=== PATIENT | male | born 1945 | race Caucasian/White ===

== ENCOUNTER → 2016-12-02 | Day surgery (SDC) | payer MEDICARE ==
[~2016-12-02] VITALS: Ht 167.6 cm; Wt 56.2 kg
[~2016-12-02] MED LIST: AMIODARONE HCL200 MG PO; ANTIVERT/2525 M1 PO; ASCRIPTIN1 TA1 PO; ASPIRIN81 M1 PO; CLARITIN-D 5 MG1 T12 PO; COLACE100 MG PO; COREG3.125 MG PO; COREG6.25 MG PO; DOXYCYCLINE HY100 M3 PO; FLOMAX0.4 MG PO; HYDROCODONE BIT1 T11 PO; LEVOFLOXACIN500 MG PO; LIPITOR40 MG PO; LISINOPRIL2.5 MG PO; LOMOTIL 0.025 M1 TA1 PO; PERCOCET 325 MG1 TA5 PO; PRINIVIL20 M1 PO; PROCHLORPERAZIN10 M1 PO; ZOFRAN4 MG PO
--- NOTE | ~2016-12-02 | PROC NOTE ---
[place], [place] PROCEDURE NOTE NAME: MUNA PHELPS V [facility] #: [id number] UNIT #: [id number] ROOM: DOCTOR: SILVESTRE GAY MD BIRTHDATE: [birth year] DOS: 12/02/2016 PREOPERATIVE DIAGNOSES: History of colon cancer, status post subtotal colectomy. POSTOPERATIVE DIAGNOSES: History of colon cancer, status post subtotal colectomy. PROCEDURE: Sigmoidoscopy. ENDOSCOPIST: Silvestre Gay MD FIELD CONTACT PERSON: None. ANESTHESIA: MAC. INDICATIONS: This is a 71-year-old gentleman who underwent subtotal colectomy for obstructing sigmoid cancer a few years ago, who is here for a sigmoidoscopy/colonoscopy. The procedure and its complications were explained to the patient in detail and he agreed to proceed. DESCRIPTION OF PROCEDURE: After identifying the patient, the patient was brought to the endoscopy suite and placed in the left lateral position. After time-out procedure was called, IV sedation was administered by the anesthesia team. A digital rectal exam was performed, which was within normal limits. An adult colonoscope was now introduced into the anal canal and advanced sequentially into the rectum and the distal sigmoid colon where the anastomosis was visualized and into the distal part of the small intestine. There were no obvious polyps, ulcerations or lesions that could be visualized. Upon withdrawal, these findings were confirmed. The patient was then taken to the recovery room in a stable fashion. There were no complications. Dr. Silvestre Gay, the attending surgeon was present throughout the operating case. Based on these findings, the patient is recommended to have another colonoscopy within the next 1-3 years. These findings will be discussed with the patient in the postoperative recovery room. Silvestre Gay MD CM:PROCNOTE:PROCEDURE NOTE [id number] SILVESTRE GAY MD
[2016-12-02 07:50] VITALS: BP 146/98
[2016-12-02 08:24] VITALS: BP 136/81
[2016-12-02 08:39] VITALS: BP 139/89
[2016-12-02 08:54] VITALS: BP 134/84
== END | disposition home or self-care (01) ==
LOC: SDC 11-29 08:00
DX: Z08 Encounter for follow-up examination after completed treatment for malignant neoplasm (principal); I10 Essential (primary) hypertension; I25.2 Old myocardial infarction; Z85.038 Personal history of other malignant neoplasm of large intestine; Z90.49 Acquired absence of other specified parts of digestive tract; Z98.0 Intestinal bypass and anastomosis status; Z85.46 Personal history of malignant neoplasm of prostate; Z86.14 Personal history of Methicillin resistant Staphylococcus aureus infection; Z98.890 Other specified postprocedural states; Z82.49 Family history of ischemic heart disease and other diseases of the circulatory system; Z80.9 Family history of malignant neoplasm, unspecified; Z87.891 Personal history of nicotine dependence
CPT/HCPCS: 00810; G0104

== ENCOUNTER → 2017-03-14 | Outpatient (CLI) | payer MEDICARE ==
[2017-03-14 08:21] LABS: ALBUMIN 3.5 gm/dl (3.1-4.5); ALKALINE PHOSPHATASE 82 U/L (45-117); BUN 16 mg/dl (7-24); CHLORIDE 108 mmol/L (98-107); CREATININE 1.25 mg/dL (0.70-1.30); POTASSIUM 4.2 mmol/L (3.5-5.1); SGOT/AST 15 IU/L (3-35); SGPT/ALT 19 U/L (12-78); SODIUM 141 mmol/L (136-145); TOTAL PROTEIN 6.6 gm/dL (6.4-8.2)
== END | disposition home or self-care (01) ==
LOC: LAB 07:14
PROVIDERS: Internal Medicine Interventional Cardiology
DX: I11.0 Hypertensive heart disease with heart failure (principal); I50.9 Heart failure, unspecified; J98.4 Other disorders of lung; E78.2 Mixed hyperlipidemia; I25.10 Atherosclerotic heart disease of native coronary artery without angina pectoris; I25.5 Ischemic cardiomyopathy; I47.2 Ventricular tachycardia; I25.2 Old myocardial infarction; Z95.810 Presence of automatic (implantable) cardiac defibrillator; Z79.899 Other long term (current) drug therapy

== ENCOUNTER → 2017-03-27 | Outpatient (CLI) | payer MEDICARE ==
--- NOTE | ~2017-03-27 | PF ---
[place], [place] PULMONARY FUNCTION TEST [id number] UNIT #: [id number] ROOM: DOCTOR: SUSANA MANJARREZ MD,GERA BIRTHDATE: [birth year] DOS: 03/27/2017 ORDERED BY: Dr. Jacobo Harrington. HISTORY: The patient recorded as 72-year-old male, height of 70 inches, weight of 208 pounds with BMI 29.8. The testing was done for diagnosis of a shortness of breath and others. The patient was also using Cordarone ____. There was no history of tobacco use. Dyspnea with exertion and rare wheezing reported in the symptoms. SPIROMETRY: The FVC was recorded 3.63 liters at 84% predicted value normal. FEV1 was noted 2.69 liters at 86% predicted value normal as well. Ratio of FEV1/FVC recorded 70.4%, normal. Flow volume was suggestive of mild obstructive airway pattern. The patient's lung volume, thoracic gas volume recorded 79%, residual volume 77%, total lung capacity 78%. Lung volume suggestive of mild obstructive airway pattern. The patient's lung diffusion recorded 73%. It is mildly decreased without correction of carbon monoxide hemoglobin value. The patient has resistance and passive conductance normal. FINAL IMPRESSION: Evidence of mild restrictive lung disease. The patient was noted with current pulmonary function test with mild reduction of the lung diffusion. GERA MEZA MD CM:PFREPORT:PULMONARY FUNCTION TEST 1402 1540 GERA MANJARREZ MD
== END ==
LOC: CP 10:34
DX: J98.4 Other disorders of lung (principal); I25.5 Ischemic cardiomyopathy; I47.2 Ventricular tachycardia; Z79.899 Other long term (current) drug therapy

== ENCOUNTER 2017-11-11 05:57 | Inpatient (IN) | payer MEDICARE ==
[~2017-11-11] VITALS: Ht 195.6 cm; Wt 91.3 kg
--- NOTE | ~2017-11-11 | PR ---
[place], [place] PROGRESS NOTE NAME: MUNA PHELPS V UNIT #: [id number] ROOM: 506 DOCTOR: CHRIS SHUKLA MD BIRTHDATE: [birth year] DOS: 11/13/2017 SUBJECTIVE: The patient was seen at his bedside today 11/13/2017 for followup of his ischemic cardiomyopathy with ICD in place along with near syncope. He presented to the hospital on this occasion after standing and feeling very lightheaded. He became nauseous and did vomit once and then felt very weak. He was hospitalized for further assessment. His ICD was interrogated by the [employer] hvac sales representative and found to be functioning normally. Hemoglobin is normal at 13.9. TSH is elevated at 11.6, troponin level was normal. The patient did have a carotid ultrasound study today, which showed atherosclerotic plaque, but less than 50% stenoses bilaterally. PHYSICAL EXAMINATION: VITAL SIGNS: Today, his pulse is 66 and regular, blood pressure 139/79. He is afebrile. NECK: Supple. He has no jugular distention. Carotids are full. LUNGS: Respirations are unlabored. His chest is clear to auscultation and percussion. HEART: Has a regular rhythm. He has a fourth heart sound, but no third heart sound. The PMI is not displaced. ABDOMEN: Soft and normally active. EXTREMITIES: Showed no edema. Peripheral pulses were easily palpated in the feet. IMPRESSION: 1. History of coronary artery disease with ischemic cardiomyopathy. 2. Status post placement of Medtronic dual chamber ICD. 3. Near syncope. The patient describes orthostatic lightheadedness preceding his episode. PLAN: We will be obtaining an echocardiogram, thus far we find no significant arrhythmic cause for his syncope. It is likely that his symptoms were due to orthostatic lightheadedness from his cardiomyopathy and his medications. Currently, he appears to be hemodynamically compensated. He shows no signs of fluid overload or low cardiac output. I would consider replacing his hypothyroid indices, which are most likely caused by his amiodarone. He can probably be discharged to home at any time for followup with his regular house admin as an outpatient. We thank the hospitalist physicians for asking our advice regarding his care. [place], [place] PROGRESS NOTE NAME: LENIN,TORO Holli UNIT #: [id number] ROOM: 506 DOCTOR: CHRIS SHUKLA MD BIRTHDATE: [birth year] CHRIS SHUKLA MD CM:PNTRANS 1405 0131 CHRIS SHUKLA MD 11/14/17 0129 interface
--- NOTE | ~2017-11-11 | EKG ---
[place], [place] ELECTROCARDIOGRAM REPORT NAME: MUNA PHELPS V UNIT #: [id number] ROOM: 506 DOCTOR: EPIPHANY DRAFT REPORT BIRTHDATE: [birth year] [facility] Test Date: 2017-11-11 Test Time: 06:40:43 Pat Name: MUNA PHELPS Department: Room: 506 Gender: M Ham Sawyer: : 1945 Requested By: EDVIN MANZO Order Number: [id number] Reading MD: Rina Huitron MD Measurements Intervals [place] Rate: 60 P: 58 [place]: 196 QRS: -26 QRSD: 169 T: 251 QT: 486 QTc: 486 Interpretive Statements Pacemaker spikes or artifacts Sinus rhythm Right bundle branch block LVH with IVCD and secondary repol abnrm Borderline prolonged QT interval Electronically Signed On 11-12-2017 11:10:48 PDT by Rina Huitron MD CM:EKGRPT:ELECTROCARDIOGRAM REPORT [id number] 1110 EDVIN MANZO MD EPIPHANY DRAFT REPORT EDVIN MANZO MD
[2017-11-11 05:58] VITALS: BP 158/99
[2017-11-11] MEDS ORDERED: PRAVASTATIN SOD40 MG PO (06:08)
[2017-11-11] MEDS ORDERED: VITAMIN D31000 UNI1 PO (06:09)
[2017-11-11 06:52] LABS: BASO # 0.1 10*3/uL (0.0-0.1); BASO % 0.8 % (0.0-1.0); EOS # 0.2 10*3/uL (0.0-0.4); EOS % 3.2 % (1.0-4.0); HEMATOCRIT 41.4 % (42.0-52.0); HEMOGLOBIN 13.5 g/dl (14.0-18.0); LYMPH % 15.8 % (27.0-41.0); MEAN CELL VOLUME 96.5 fl (80.0-94.0); MEAN CORPUSCULAR HGB 31.5 pg (27.0-31.0); MEAN CORPUSCULAR HGB CONC 32.6 g/dl (33.0-37.0); MEAN PLATELET VOLUME 10.5 fl (9.6-12.3); MONO # 0.6 10*3/uL (0.1-1.0); MONO % 8.9 % (3.0-9.0); NEUT # 4.5 10*3/uL (2.3-7.9); NEUT % 70.7 % (47.0-73.0); PLATELET COUNT AUTOMATED 211 10*3/uL (130-400); RED BLOOD COUNT 4.29 10*6/uL (4.50-5.90); RED CELL DISTRI WIDTH 12.9 % (0-14.5); WHITE BLOOD COUNT 6.3 10*3/uL (4.8-10.8)
[2017-11-11 07:00] LABS: ACT PARTIAL THROMBO TIME 24.2 SECONDS (20.8-31.5)
[2017-11-11 07:12] LABS: ALBUMIN 3.5 gm/dl (3.1-4.5); ALKALINE PHOSPHATASE 69 U/L (45-117); BUN 18 mg/dl (7-24); CHLORIDE 109 mmol/L (98-107); CREATININE 1.25 mg/dL (0.70-1.30); LIPASE 174 U/L (73-393); POTASSIUM 3.5 mmol/L (3.5-5.1); SGOT/AST 14 IU/L (3-35); SGPT/ALT 13 U/L (12-78); SODIUM 141 mmol/L (136-145); TOTAL PROTEIN 6.5 gm/dL (6.4-8.2)
[2017-11-11 07:16] LABS: TROPONIN I < 0.015 ng/ml (<0.045)
[2017-11-11 07:21] LABS: BILIRUBIN NEGATIVE (NEGATIVE); BLOOD NEGATIVE (NEGATIVE); CLARITY CLEAR (CLEAR); COLOR YELLOW (YELLOW); GLUCOSE NEGATIVE (NEGATIVE); KETONE NEGATIVE (NEGATIVE); LEUKO ESTERASE NEGATIVE (NEGATIVE); NITRITE NEGATIVE (NEGATIVE); PH 7.5 (5.0-9.0); UROBILINOGEN 0.2 E.U./dl (0.2-1.0)
[2017-11-11 07:29] LABS: RBC 0-2 rbc/hpf (0-2)
[2017-11-11 07:42] VITALS: BP 132/94
[2017-11-11 09:00] VITALS: BP 150/92
[2017-11-11] MEDS ORDERED: CO Q10100 MG PO (09:15)
[2017-11-11] MEDS ORDERED: LIPITOR40 MG PO (09:15)
[2017-11-11 12:00] VITALS: BP 162/80
[2017-11-11 16:00] VITALS: BP 151/90
[2017-11-11 20:00] VITALS: BP 154/79
[2017-11-12] VITALS: BP 168/89
[2017-11-12 04:00] VITALS: BP 157/90
[2017-11-12 06:38] LABS: BASO # 0.1 10*3/uL (0.0-0.1); EOS # 0.2 10*3/uL (0.0-0.4); EOS % 2.4 % (1.0-4.0); HEMATOCRIT 43.9 % (42.0-52.0); HEMOGLOBIN 13.9 g/dl (14.0-18.0); LYMPH # 1.2 10*3/uL (1.3-4.4); LYMPH % 16.2 % (27.0-41.0); MEAN CELL VOLUME 99.5 fl (80.0-94.0); MEAN CORPUSCULAR HGB 31.5 pg (27.0-31.0); MEAN CORPUSCULAR HGB CONC 31.7 g/dl (33.0-37.0); MEAN PLATELET VOLUME 10.7 fl (9.6-12.3); MONO # 0.6 10*3/uL (0.1-1.0); MONO % 8.6 % (3.0-9.0); NEUT # 5.1 10*3/uL (2.3-7.9); PLATELET COUNT AUTOMATED 215 10*3/uL (130-400); RED BLOOD COUNT 4.41 10*6/uL (4.50-5.90); WHITE BLOOD COUNT 7.2 10*3/uL (4.8-10.8)
[2017-11-12 06:59] LABS: ACT PARTIAL THROMBO TIME 23.9 SECONDS (20.8-31.5)
[2017-11-12 07:14] LABS: BUN 16 mg/dl (7-24); CHLORIDE 110 mmol/L (98-107); CHOLESTEROL 137 mg/dL (<200); CREATININE 1.18 mg/dL (0.70-1.30); HDL CHOLESTEROL 52 mg/dl (40-60); LDL CHOLESTEROL 65 mg/dL (9-159); SODIUM 144 mmol/L (136-145); TRIGLYCERIDES 102 mg/dl (<150); VLDL CHOLESTEROL 20 mg/dL (6-40)
[2017-11-12 08:00] VITALS: BP 167/87
[2017-11-12 09:23] LABS: VITAMIN D, 25-HYDROXY 30.5 ng/mL (30-100)
[2017-11-12 12:00] VITALS: BP 155/98
[2017-11-12 16:00] VITALS: BP 153/89
[2017-11-12 20:00] VITALS: BP 140/80
[2017-11-13] VITALS: BP 154/84
[2017-11-13 08:00] VITALS: BP 152/87
[2017-11-13 12:00] VITALS: BP 139/79
[2017-11-13 16:00] VITALS: BP 137/70
[2017-11-13] MEDS ORDERED: LISINOPRIL10 M1 PO (16:54)
[2017-11-13] MEDS ORDERED: Synthroid,Levo50 MCG PO (16:54)
== END 2017-11-13 17:54 | disposition home or self-care (01) | DRG 312 ==
LOC: ED 05:57 → 5E 08:23 → EDHOLD 08:23 → 5E 08:36
PROVIDERS: Emergency Medicine Emergency Medical Services; Internal Medicine
PROC: 4B02XTZ Measurement of Cardiac Defibrillator, External Approach (ICD-10-PCS; principal; 2017-11-13)
DX: R55 Syncope and collapse (principal); E83.41 Hypermagnesemia; D53.9 Nutritional anemia, unspecified; I25.10 Atherosclerotic heart disease of native coronary artery without angina pectoris; R73.9 Hyperglycemia, unspecified; I25.5 Ischemic cardiomyopathy; E03.9 Hypothyroidism, unspecified; I10 Essential (primary) hypertension; Z95.5 Presence of coronary angioplasty implant and graft; Z95.810 Presence of automatic (implantable) cardiac defibrillator; Z85.038 Personal history of other malignant neoplasm of large intestine; Z88.0 Allergy status to penicillin; Z79.82 Long term (current) use of aspirin; I25.2 Old myocardial infarction; Z79.899 Other long term (current) drug therapy; Z82.49 Family history of ischemic heart disease and other diseases of the circulatory system; Z80.9 Family history of malignant neoplasm, unspecified

== ENCOUNTER 2018-02-13 01:52 | Inpatient (IN) | payer MEDICARE ==
[~2018-02-13] VITALS: Ht 172.7 cm; Wt 93.9 kg
[2018-02-13] VITALS (23 sets, daily range): BP systolic 88–148; BP diastolic 60–102
--- NOTE | ~2018-02-13 | EKG ---
[place], [place] ELECTROCARDIOGRAM REPORT NAME: MUNA PHELPS V UNIT #: [id number] ROOM: [facility] DOCTOR: ELLE DRAFT REPORT BIRTHDATE: [birth year] [facility] Test Date: 2018-02-13 Test Time: 03:18:22 Pat Name: MUNA PHELPS Department: Room: [facility] Gender: M Stair Builder: José Luis Richard : 1945 Requested By: MELLY SANCHEZ Order Number: [id number] Reading MD: José Luis Bautista MD Measurements Intervals [place] Rate: 68 P: 53 [place]: 179 QRS: -14 QRSD: 166 T: 266 QT: 468 QTc: 498 Interpretive Statements Sinus rhythm Probable left atrial enlargement Right bundle branch block LVH with IVCD and secondary repol abnrm ST depr, consider ischemia, inferior leads Borderline prolonged QT interval Compared to ECG 11/11/2017 06:40:43 Possible ischemia now present Electronically Signed On 02-13-2018 8:14:32 PDT by José Luis Bautista MD CM:EKGRPT:ELECTROCARDIOGRAM REPORT 0318 0814 MELLY MARTINO DRAFT REPORT MELLY SANCHEZ DO
--- NOTE | ~2018-02-13 | EKG ---
[place], [place] ELECTROCARDIOGRAM REPORT NAME: MUNA PHELPS V UNIT #: [id number] ROOM: [facility] DOCTOR: ELLE DRAFT REPORT BIRTHDATE: [birth year] [facility] Test Date: 2018-02-13 Test Time: 08:07:22 Pat Name: MUNA PHELPS Department: Room: [facility] Gender: M Bioinformatics Software Engineer: Jenny Tello : 1945 Requested By: ALBERT CONNOR Order Number: [id number] Reading MD: José Luis Bautista MD Measurements Intervals [place] Rate: 64 P: 24 [place]: 191 QRS: -40 QRSD: 163 T: 244 QT: 471 QTc: 486 Interpretive Statements Sinus rhythm Ventricular premature complex IVCD LVH with IVCD and secondary repol abnrm Compared to ECG 11/11/2017 06:40:43 Ventricular premature complex(es) now present Electronically Signed On 02-13-2018 8:18:49 PDT by José Luis Bautista MD CM:EKGRPT:ELECTROCARDIOGRAM REPORT 6 7 ALBERT MARTINO DRAFT REPORT ALBERT CONNOR DO
--- NOTE | ~2018-02-13 | EKG ---
[place], [place] ELECTROCARDIOGRAM REPORT NAME: MUNA PHELPS V UNIT #: [id number] ROOM: [facility] DOCTOR: ELLE DRAFT REPORT BIRTHDATE: [birth year] [facility] Test Date: 2018-02-13 Test Time: 02:25:36 Pat Name: MNUA PHELPS Department: Room: [facility] Gender: M Real Estate Agent/Broker: José Luis Richard : 1945 Requested By: MELLY SANCHEZ Order Number: [id number] Reading MD: José Luis Bautista MD Measurements Intervals [place] Rate: 76 P: 49 [place]: 196 QRS: -18 QRSD: 168 T: 242 QT: 438 QTc: 493 Interpretive Statements Sinus rhythm Left atrial enlargement Nonspecific IVCD LVH with IVCD and secondary repol abnrm ST depr, consider ischemia, inferior leads Compared to ECG 02/13/18 Normal Sinus Rhythm has replaced wide complex tachycardia Anterior ST elevation has been noted previously Electronically Signed On 02-13-2018 8:14:27 PDT by José Luis Bautista MD CM:EKGRPT:ELECTROCARDIOGRAM REPORT 0225 0814 MELLY MARTINO DRAFT REPORT MELLY SANCHEZ DO
--- NOTE | ~2018-02-13 | EKG ---
[place], [place] ELECTROCARDIOGRAM REPORT NAME: MUNA PHELPS V UNIT #: [id number] ROOM: [facility] DOCTOR: ELLE DRAFT REPORT BIRTHDATE: [birth year] [facility] Test Date: 2018-02-13 Test Time: 02:05:09 Pat Name: MUNA PHELPS Department: Room: [facility] Gender: M Seafood And Service Meat Manager: José Luis Richard : 1945 Requested By: MELLY SANCHEZ Order Number: [id number] Reading MD: José Luis Bautista MD Measurements Intervals [place] Rate: 169 P: -86 [place]: 100 QRS: 11 QRSD: 166 T: -80 QT: 336 QTc: 564 Interpretive Statements Monomorphic wide complex tachycardia, probably ventricular in origin Compared to ECG 11/11/2017 06:40:43 Sinus rhythm no longer present Right bundle-branch block no longer present Left ventricular hypertrophy no longer present Early repolarization no longer present Monomorphic ventricular tachycardia is now present Electronically Signed On 02-13-2018 8:04:12 PDT by José Luis Bautista MD CM:EKGRPT:ELECTROCARDIOGRAM REPORT [id number] 0804 MELLY MARTINO DRAFT REPORT MELLY SANCHEZ DO
[~2018-02-13 01:52] MED LIST changes: +CO Q10100 MG PO; +LISINOPRIL10 M1 PO; +PRAVASTATIN SOD40 MG PO; +Synthroid,Levo50 MCG PO; +VITAMIN D31000 UNI1 PO
[2018-02-13 02:36] LABS: BASO # 0.1 10*3/uL (0.0-0.1); BASO % 0.8 % (0.0-1.0); EOS # 0.4 10*3/uL (0.0-0.4); EOS % 3.3 % (1.0-4.0); HEMATOCRIT 42.6 % (42.0-52.0); HEMOGLOBIN 13.9 g/dl (14.0-18.0); LYMPH # 1.4 10*3/uL (1.3-4.4); LYMPH % 12.5 % (27.0-41.0); MEAN CELL VOLUME 98.6 fl (80.0-94.0); MEAN CORPUSCULAR HGB 32.2 pg (27.0-31.0); MEAN CORPUSCULAR HGB CONC 32.6 g/dl (33.0-37.0); MEAN PLATELET VOLUME 10.2 fl (9.6-12.3); MONO # 0.6 10*3/uL (0.1-1.0); MONO % 5.6 % (3.0-9.0); NEUT # 8.5 10*3/uL (2.3-7.9); NEUT % 76.8 % (47.0-73.0); PLATELET COUNT AUTOMATED 232 10*3/uL (130-400); RED BLOOD COUNT 4.32 10*6/uL (4.50-5.90); RED CELL DISTRI WIDTH 13.6 % (0-14.5); WHITE BLOOD COUNT 11.1 10*3/uL (4.8-10.8)
[2018-02-13 02:46] LABS: ACT PARTIAL THROMBO TIME 24.2 SECONDS (20.8-31.5); INTERNATIONAL NORM RATIO 0.9 (2.0-3.5)
[2018-02-13 02:57] LABS: ALBUMIN 3.2 gm/dl (3.1-4.5); CREATININE 1.51 mg/dL (0.70-1.30); POTASSIUM 4.1 mmol/L (3.5-5.1); TOTAL PROTEIN 6.5 gm/dL (6.4-8.2)
[2018-02-13 03:03] LABS: TROPONIN I 0.314 ng/ml (<0.045)
[2018-02-14] VITALS (7 sets, daily range): BP systolic 103–161; BP diastolic 51–99
[2018-02-14 04:04] LABS: BASO # 0.1 10*3/uL (0.0-0.1); BASO % 0.7 % (0.0-1.0); EOS # 0.4 10*3/uL (0.0-0.4); EOS % 4.5 % (1.0-4.0); HEMATOCRIT 40.2 % (42.0-52.0); HEMOGLOBIN 12.9 g/dl (14.0-18.0); LYMPH # 1.2 10*3/uL (1.3-4.4); LYMPH % 14.3 % (27.0-41.0); MEAN CORPUSCULAR HGB 31.8 pg (27.0-31.0); MEAN CORPUSCULAR HGB CONC 32.1 g/dl (33.0-37.0); MEAN PLATELET VOLUME 10.4 fl (9.6-12.3); MONO # 0.7 10*3/uL (0.1-1.0); NEUT # 6.2 10*3/uL (2.3-7.9); NEUT % 72.2 % (47.0-73.0); PLATELET COUNT AUTOMATED 183 10*3/uL (130-400); RED BLOOD COUNT 4.06 10*6/uL (4.50-5.90); RED CELL DISTRI WIDTH 13.6 % (0-14.5); WHITE BLOOD COUNT 8.6 10*3/uL (4.8-10.8)
[2018-02-14 04:18] LABS: BUN 18 mg/dl (7-24); CHLORIDE 111 mmol/L (98-107); CREATININE 1.02 mg/dL (0.70-1.30); POTASSIUM 3.7 mmol/L (3.5-5.1); SODIUM 142 mmol/L (136-145)
[2018-02-14 04:22] LABS: PHOSPHOROUS 2.6 mg/dL (2.5-4.9)
[2018-02-15] VITALS: BP 151/83
[2018-02-15 04:00] VITALS: BP 155/95
[2018-02-15 05:38] LABS: BUN 15 mg/dl (7-24); CHLORIDE 112 mmol/L (98-107); CHOLESTEROL 166 mg/dL (<200); CREATININE 1.11 mg/dL (0.70-1.30); HDL CHOLESTEROL 56 mg/dl (40-60); LDL CHOLESTEROL 94 mg/dL (9-159); POTASSIUM 3.8 mmol/L (3.5-5.1); SODIUM 144 mmol/L (136-145); TRIGLYCERIDES 80 mg/dl (<150); VLDL CHOLESTEROL 16 mg/dL (6-40)
[2018-02-15 06:13] LABS: BASO # 0.1 10*3/uL (0.0-0.1); BASO % 0.7 % (0.0-1.0); EOS # 0.4 10*3/uL (0.0-0.4); EOS % 5.5 % (1.0-4.0); HEMATOCRIT 41.7 % (42.0-52.0); HEMOGLOBIN 13.4 g/dl (14.0-18.0); LYMPH # 1.2 10*3/uL (1.3-4.4); LYMPH % 16.7 % (27.0-41.0); MEAN CELL VOLUME 98.1 fl (80.0-94.0); MEAN CORPUSCULAR HGB 31.5 pg (27.0-31.0); MEAN CORPUSCULAR HGB CONC 32.1 g/dl (33.0-37.0); MEAN PLATELET VOLUME 10.4 fl (9.6-12.3); MONO # 0.7 10*3/uL (0.1-1.0); MONO % 9.5 % (3.0-9.0); NEUT # 4.6 10*3/uL (2.3-7.9); NEUT % 66.6 % (47.0-73.0); PLATELET COUNT AUTOMATED 189 10*3/uL (130-400); RED BLOOD COUNT 4.25 10*6/uL (4.50-5.90); RED CELL DISTRI WIDTH 13.5 % (0-14.5); WHITE BLOOD COUNT 6.9 10*3/uL (4.8-10.8)
[2018-02-15 08:00] VITALS: BP 161/92
[2018-02-15 12:00] VITALS: BP 148/86
[2018-02-15] MEDS ORDERED: CARVEDILOL25 MG PO (15:25)
[2018-02-15] MEDS ORDERED: LISINOPRIL20 MG PO (15:25)
[2018-02-15] MEDS ORDERED: Synthroid,Levo50 MCG PO (15:36)
[2018-02-15] MEDS ORDERED: ATORVASTATIN CA40 M1 PO (15:36)
== END 2018-02-15 16:15 | disposition home or self-care (01) | DRG 280 ==
LOC: ED 01:52 → EDHOLD 03:06 → ICCU 03:06
PROVIDERS: Internal Medicine; Student in an Organized Health Care Education/Training Program
PROC: 5A2204Z Restoration of Cardiac Rhythm, Single (ICD-10-PCS; 2018-02-13)
PROC: 3E073KZ Introduction of Other Diagnostic Substance into Coronary Artery, Percutaneous Approach (ICD-10-PCS; principal; 2018-02-15)
PROC: 4B02XTZ Measurement of Cardiac Defibrillator, External Approach (ICD-10-PCS; principal; 2018-02-15)
PROC: 4A02XM4 Measurement of Cardiac Total Activity, External Approach (ICD-10-PCS; principal; 2018-02-15)
DX: I21.A1 Myocardial infarction type 2 (principal); R65.11 Systemic inflammatory response syndrome (SIRS) of non-infectious origin with acute organ dysfunction; N17.0 Acute kidney failure with tubular necrosis; I47.2 Ventricular tachycardia; E87.0 Hyperosmolality and hypernatremia; I50.42 Chronic combined systolic (congestive) and diastolic (congestive) heart failure; R55 Syncope and collapse; D64.9 Anemia, unspecified; D72.9 Disorder of white blood cells, unspecified; E55.9 Vitamin D deficiency, unspecified; E87.8 Other disorders of electrolyte and fluid balance, not elsewhere classified; R73.9 Hyperglycemia, unspecified; I25.5 Ischemic cardiomyopathy; I25.10 Atherosclerotic heart disease of native coronary artery without angina pectoris; E03.9 Hypothyroidism, unspecified; I11.0 Hypertensive heart disease with heart failure; Z95.810 Presence of automatic (implantable) cardiac defibrillator; I25.2 Old myocardial infarction; Z82.49 Family history of ischemic heart disease and other diseases of the circulatory system; Z80.9 Family history of malignant neoplasm, unspecified; Z88.0 Allergy status to penicillin; Z79.82 Long term (current) use of aspirin; Z79.899 Other long term (current) drug therapy

== ENCOUNTER 2018-04-16 20:46 | Inpatient (IN) | payer MEDICARE ==
[~2018-04-16] VITALS: Ht 182.9 cm; Wt 94.1 kg
--- NOTE | ~2018-04-16 | CON ---
[place], [place] REPORT OF CONSULTATION NAME: [facility]HELPS [facility]: [id number] UNIT #: [id number] ROOM: [facility] DOCTOR: LAVELL FRY,MEGAN BIRTHDATE: [birth year] DOS: 04/17/2018 CARDIOLOGY CONSULT REASON FOR CONSULTATION: V-tach. HISTORY OF PRESENT COMPLAINT: The patient is a 73-year-old gentleman with history of coronary artery disease, cardiomyopathy, history of ICD implant was presented to the Emergency Room due to his ICD went off. The patient started to feel dizzy and lightheaded and then he received a shock from his ICD. While he was in the Emergency Room, the patient had similar symptoms of dizziness and lightheadedness. Subsequently, his ICD shocked him again. He was found to be in ventricular tachycardia on the monitor. He denies any chest pain, shortness of breath. No palpitations or dizziness, no edema, no orthopnea. He is compliant with his medications. It was about a month that he was admitted, had a V-tach at that time, underwent echo and stress test, which showed no gross ischemia. He was admitted to the intensive care unit and Cardiology consulted for further recommendations. He denies any chest pain, shortness of breath. No palpitation or dizziness. REVIEW OF SYSTEMS: Review of the 10 systems negative except as mentioned above. PAST MEDICAL HISTORY: 1. Cardiomyopathy. 2. Coronary artery disease, status post ICD. 3. Hypertension. 4. Acquired hypothyroidism. 5. Ventricular tachycardia. 6. Anemia. PAST SURGICAL HISTORY: History of ICD implant in 2014, history of colostomy, history of hernia surgery, history of colostomy reversal. SOCIAL HISTORY: The patient does not smoke or drink. No illicit drugs. FAMILY HISTORY: Father at the age of 60 from myocardial infarction. Mother has cancer. ALLERGIES: The patient is allergic to PENICILLIN. HOME MEDICATIONS: Reviewed including aspirin, amiodarone, Coreg, Lipitor, lisinopril, and levothyroxine. PHYSICAL EXAMINATION: VITAL SIGNS: Blood pressure is 171/100, pulse 61, respirations 18, weight 207 pounds. GENERAL: Alert, comfortable, in no acute distress. HEAD AND NECK: Neck is supple, no distended neck veins, no carotid bruit. CHEST: Symmetrical, nontender. ICD area is unremarkable. LUNGS: Clear to auscultation bilaterally. [place], [place] REPORT OF CONSULTATION NAME: MUNA PHELPS V UNIT #: [id number] ROOM: [facility] DOCTOR: MEGAN MONTE MD BIRTHDATE: [birth year] HEART: Regular rhythm, no S3. Grade 1/6 systolic murmur. ABDOMEN: Benign, nontender. Bowel sounds normal. EXTREMITIES: Showed no edema. Distal pulses are palpable. SKIN: Warm and dry. No cyanosis, no clubbing. RECTAL: Deferred. GENITOURINARY: Deferred. NEUROLOGIC: The patient is alert, oriented. No focal neurologic deficit. CURRENT MEDICATIONS: Reviewed. REVIEW OF DIAGNOSTIC TESTS: EKG rhythm strips, labs and imaging studies reviewed. EKG shows sinus rhythm with right bundle branch block. QT interval is 435 seconds. CBC and chemistry unremarkable. Troponins are 0.047, 0.043, 0.031. BUN 16, creatinine 1.16. IMPRESSION: 1. Ventricular tachycardia, status post successful conversion to sinus rhythm with ICD times 2. 2. Ischemic cardiomyopathy, EF 35-40% on echo on 01/31/2018. 3. Coronary artery disease, history of myocardial infarction. Stress test from 02/15/2018 showed fixed anterior defect. 4. Mitral regurgitation, moderate. 5. Status post ICD implant. 6. Hypertension. 7. Dyslipidemia. RECOMMENDATIONS: 1. The patient is clinically stable. 2. Increase Coreg to 37.5 b.i.d. and if needed he may go up to 50 mg b.i.d. 3. Increase the amiodarone to 400 mg twice a day for one week and then cut back to 200 mg twice a day. 4. Resume his home lisinopril to 20 mg twice a day. 5. Continue to monitor the heart rate and blood pressures. 6. The blood pressure and heart rates are stable and he can be discharged home tomorrow. 7. [facility] as well as [facility] in the future. 8. His son was at the bedside and the above treatment plan discussed with him and his son and all questions were answered. 9. If the patient developed recurrent V-tach or any chest pains, he will need cardiac catheterization to rule out any significant coronary artery disease. [place], [place] REPORT OF CONSULTATION NAME: MUNA PHELPS V [facility] [id number] UNIT #: [id number] ROOM: [facility] DOCTOR: LAVELL FRY,MEGAN BIRTHDATE: [birth year] MEGAN MONTE MD CM:CONSTR:REPORT OF CONSULTATION 2141 05/29/18 0829 interface
--- NOTE | ~2018-04-16 | EKG ---
[place], [place] ELECTROCARDIOGRAM REPORT NAME: MUNA PHELPS V UNIT #: [id number] ROOM: [facility] DOCTOR: EPIPHANY DRAFT REPORT BIRTHDATE: [birth year] [facility] Test Date: 2018-04-18 Test Time: 07:09:03 Pat Name: MUNA PHELPS Department: Room: [place] [id number] Gender: M Director Long Term Care: Jenny Tello : 1945 Requested By: MEGAN MONTE Order Number: [id number] Reading MD: José Luis Bautista MD Measurements Intervals [place] Rate: 62 P: 53 [place]: 200 QRS: -40 QRSD: 176 T: 256 QT: 513 QTc: 521 Interpretive Statements Sinus rhythm RBBB Probable old anterior myocardial infarction Left ventricular hypertrophy Abnormal T, consider ischemia, lateral leads Compared to ECG 04/16/2018 No significant change Electronically Signed On 04-18-2018 18:24:04 PST by José Luis Bautista MD CM:EKGRPT:ELECTROCARDIOGRAM REPORT [id number] 1824 MEGAN MONTE MD EPIPHANY DRAFT REPORT MEGAN MONTE MD
--- NOTE | ~2018-04-16 | EKG ---
[place], [place] ELECTROCARDIOGRAM REPORT NAME: MUNA PHELPS V UNIT #: [id number] ROOM: [facility] DOCTOR: EPIPHANY DRAFT REPORT BIRTHDATE: [birth year] [facility] Test Date: 2018-04-16 Test Time: 20:59:30 Pat Name: MUNA PHELPS Department: ER Room: [facility] Gender: M Student Officer: Abhi Guevara : 1945 Requested By: EDVIN MANZO Order Number: [id number] Reading MD: José Luis Bautista MD Measurements Intervals [place] Rate: 91 P: 61 [place]: 205 QRS: -48 QRSD: 170 T: 124 QT: 435 QTc: 536 Interpretive Statements Sinus rhythm Right bundle branch block Probable old anteroseptal VT LVH with IVCD and secondary repol abnrm Prolonged QT interval Baseline wander in lead(s) III,aVL,V2,V6 Compared to ECG 02/13/2018 08:07:22 Prolonged QT interval now present Ventricular premature complex(es) no longer present Electronically Signed On 04-18-2018 18:20:55 PST by José Luis Bautista MD CM:EKGRPT:ELECTROCARDIOGRAM REPORT 58 19 EDVIN MANZO MD EPIPHANY DRAFT REPORT EDVIN MANZO MD
--- NOTE | ~2018-04-16 | PR ---
[place], [place] PROGRESS NOTE NAME: MUNA PHELPS V [facility] #: [id number] UNIT #: [id number] ROOM: [facility] DOCTOR: CHRIS SHUKLA MD BIRTHDATE: [birth year] DOS: 04/18/2018 CARDIOLOGY PROGRESS NOTE SUBJECTIVE: The patient was seen at his bedside in the intensive care unit today, 04/18/2018, for followup of his ischemic cardiomyopathy. He is a 73-year-old man who has a history of coronary artery disease and ventricular tachycardia. An ICD was placed and he was doing well until 04/16/2018. He had gone to the bathroom and on his way back was suddenly shocked by his device. He came to the Emergency Room where he was shocked again. The device was interrogated and it was determined that the shocks were appropriate. He was therefore admitted to the hospital. Since he has been here, troponin levels have been only minimally elevated consistent with 2 ICD shocks. He has no other signs of acute myocardial infarction. His beta anuja and amiodarone were increased and he has remained in regular sinus rhythm since then. He feels well today. PHYSICAL EXAMINATION: VITAL SIGNS: Pulse is 60 and regular, blood pressure is 160/90. He is afebrile. NECK: Supple. He has no jugular distention. Carotids are full. LUNGS: Respirations are unlabored. His chest is clear. HEART: Has a regular rhythm with an S4 gallop. I did not hear an S3. ABDOMEN: Benign. EXTREMITIES: Showed no edema. The patient does seem to be doing well and I think he can be discharged to home. MEDICATIONS: At the time of discharge will include potassium phosphate 500 mg a.c. and at bedtime, carvedilol 37.5 mg b.i.d., atorvastatin 40 mg daily, amiodarone 400 mg twice a day for a week and then 200 mg once a day thereafter, lisinopril 20 mg twice a day, vitamin D 1000 units daily, aspirin 81 mg daily, levothyroxine 125 mcg daily, acetaminophen p.r.n. We thank the hospitalist physicians for asking our advice regarding his care. [place], [place] PROGRESS NOTE NAME: MUNA PHELPS V [facility] #: [id number] UNIT #: [id number] ROOM: [facility] DOCTOR: CHRIS SHUKLA MD BIRTHDATE: [birth year] CHRIS SHUKLA MD CM:PNTRANS 1447 1704 CHRIS SHUKLA MD 04/18/18 1702 interface
[~2018-04-16 20:46] MED LIST changes: +ATORVASTATIN CA40 M1 PO; +CARVEDILOL25 MG PO; +LISINOPRIL20 MG PO
[2018-04-16 20:47] VITALS: BP 189/100
[2018-04-16 21:14] LABS: BASO # 0.1 10*3/uL (0.0-0.1); BASO % 0.9 % (0.0-1.0); EOS # 0.2 10*3/uL (0.0-0.4); EOS % 3.1 % (1.0-4.0); HEMATOCRIT 41.5 % (42.0-52.0); HEMOGLOBIN 13.6 g/dl (14.0-18.0); LYMPH # 1.2 10*3/uL (1.3-4.4); LYMPH % 15.8 % (27.0-41.0); MEAN CELL VOLUME 97.4 fl (80.0-94.0); MEAN CORPUSCULAR HGB 31.9 pg (27.0-31.0); MEAN CORPUSCULAR HGB CONC 32.8 g/dl (33.0-37.0); MEAN PLATELET VOLUME 10.9 fl (9.6-12.3); MONO # 0.7 10*3/uL (0.1-1.0); MONO % 9.4 % (3.0-9.0); NEUT # 5.4 10*3/uL (2.3-7.9); NEUT % 70.3 % (47.0-73.0); PLATELET COUNT AUTOMATED 221 10*3/uL (130-400); RED BLOOD COUNT 4.26 10*6/uL (4.50-5.90); RED CELL DISTRI WIDTH 13.3 % (0-14.5); WHITE BLOOD COUNT 7.7 10*3/uL (4.8-10.8)
[2018-04-16 21:28] LABS: ACT PARTIAL THROMBO TIME 22.6 SECONDS (20.8-31.5); INTERNATIONAL NORM RATIO 0.9 (2.0-3.5)
[2018-04-16 21:33] LABS: ALBUMIN 3.3 gm/dl (3.1-4.5); CREATININE 1.56 mg/dL (0.70-1.30); POTASSIUM 3.7 mmol/L (3.5-5.1); TOTAL PROTEIN 6.4 gm/dL (6.4-8.2); TROPONIN I 0.015 ng/ml (<0.045)
[2018-04-16 22:39] VITALS: BP 170/100
--- NOTE | 2018-04-16 22:42 | NUR ---
RESIDENT MD AT BEDSIDE SPEAKING WITH PATIENT AT THIS TIME. AMIADRONE BOLUS INFUSING WITHOUT DIFFICULTY. WILL CONTINUE TO MONITOR.
[2018-04-16 23:30] VITALS: BP 152/90
[2018-04-16 23:40] VITALS: BP 160/80
--- NOTE | 2018-04-16 23:40 | NUR ---
A 73 YEAR OLD MALE admitted to ICCU, under the services of KE Dorado DO with a diagnosis of VTACH,. Chief complaint is AICD FIRED AT HOME. Patient arrived via stretcher from ER. Monitor applied. Initial assessment completed. Vital signs taken and recorded. KE DORADO DO notified of admission to the unit. Orders received. See assessment for past medical history, medications and allergies. Patient and/or family oriented to unit. [facility] ICCU visitation policy reviewed. Clothing/patient valuable form completed. GABY YING
[2018-04-16] MEDS ORDERED: LEVOTHYROXINE125 MCG PO (23:49)
[2018-04-16] MEDS ORDERED: COREG12.5 M1 PO (23:51)
[2018-04-16] MEDS ORDERED: LIPITOR40 MG PO (23:53)
[2018-04-17] VITALS (9 sets, daily range): BP systolic 142–170; BP diastolic 79–100
[2018-04-17 06:26] LABS: BASO # 0.1 10*3/uL (0.0-0.1); BASO % 0.7 % (0.0-1.0); EOS # 0.2 10*3/uL (0.0-0.4); EOS % 2.2 % (1.0-4.0); HEMOGLOBIN 13.4 g/dl (14.0-18.0); LYMPH # 0.9 10*3/uL (1.3-4.4); LYMPH % 10.7 % (27.0-41.0); MEAN CELL VOLUME 98.1 fl (80.0-94.0); MEAN CORPUSCULAR HGB 31.3 pg (27.0-31.0); MEAN CORPUSCULAR HGB CONC 31.9 g/dl (33.0-37.0); MEAN PLATELET VOLUME 11.2 fl (9.6-12.3); MONO # 0.8 10*3/uL (0.1-1.0); MONO % 10.1 % (3.0-9.0); NEUT # 6.3 10*3/uL (2.3-7.9); NEUT % 75.8 % (47.0-73.0); PLATELET COUNT AUTOMATED 198 10*3/uL (130-400); RED BLOOD COUNT 4.28 10*6/uL (4.50-5.90); RED CELL DISTRI WIDTH 13.4 % (0-14.5); WHITE BLOOD COUNT 8.3 10*3/uL (4.8-10.8)
[2018-04-17 06:45] LABS: ALBUMIN 3.1 gm/dl (3.1-4.5); ALKALINE PHOSPHATASE 89 U/L (45-117); BUN 16 mg/dl (7-24); CHLORIDE 112 mmol/L (98-107); CHOLESTEROL 118 mg/dL (<200); CREATININE 1.16 mg/dL (0.70-1.30); HDL CHOLESTEROL 57 mg/dl (40-60); LDL CHOLESTEROL 47 mg/dL (9-159); PHOSPHOROUS 1.7 mg/dL (2.5-4.9); POTASSIUM 4.6 mmol/L (3.5-5.1); SGOT/AST 16 IU/L (3-35); SGPT/ALT 19 U/L (12-78); SODIUM 142 mmol/L (136-145); TOTAL PROTEIN 6.2 gm/dL (6.4-8.2); TRIGLYCERIDES 69 mg/dl (<150); VLDL CHOLESTEROL 14 mg/dL (6-40)
[2018-04-17 06:51] LABS: FREE T4 1.31 ng/dl (0.76-1.46)
[2018-04-17 06:52] LABS: THYROID STIM HORMONE (HS) 0.374 uIU/ml (0.358-4.75)
--- NOTE | 2018-04-17 09:40 | NUR ---
DR CARR IN TO SEE PT. UPDATED HIM ON PT'S CONDITION AND PLAN DF CARE.
--- NOTE | 2018-04-17 11:15 | NUR ---
DR MONTE IN TO SEE PT. UPDATED HIM ON PT'S CONDITION AND PLAN OF CARE. NEW ORDERS RECEIVED TO CHANGE CORDARONE TO 400MG BID AND D/C IV FLUIDS AND CORDARONE GTT. PT'S HOME DOSE OF LISINIPRIL STARTED PER ORDER ALSO.
--- NOTE | 2018-04-17 14:47 | NUR ---
DR MONTE CALLED IN REGARDING PT. ORDERED EKG FOR AM.
--- NOTE | 2018-04-17 16:25 | NUR ---
PT BACK TO BED WITHOUT ASSISTANCE. PT'S FAMILY VISITING. PT DENIES COMPLAINTS AT THIS TIME.
--- NOTE | 2018-04-17 19:31 | NUR ---
MEDICATED PT PER PRN ORDER WITH TYLENOL FOR C/O ARIAS.
[2018-04-18] VITALS: BP 133/71
--- NOTE | 2018-04-18 00:54 | NUR ---
PT MEDICATED WITH NORCO AT HIS REQUEST FOR C/O HEADACHE PAIN.
--- NOTE | 2018-04-18 03:29 | NUR ---
PT HAS BEEN SLEEPING SINCE BEING MEDICATED WITH NORCO FOR HEADACHE.
[2018-04-18 04:00] VITALS: BP 143/74
[2018-04-18 05:51] LABS: BASO % 0.4 % (0.0-1.0); EOS # 0.2 10*3/uL (0.0-0.4); EOS % 1.9 % (1.0-4.0); HEMATOCRIT 43.1 % (42.0-52.0); HEMOGLOBIN 14.1 g/dl (14.0-18.0); LYMPH # 0.9 10*3/uL (1.3-4.4); LYMPH % 9.8 % (27.0-41.0); MEAN CORPUSCULAR HGB CONC 32.7 g/dl (33.0-37.0); MEAN PLATELET VOLUME 10.9 fl (9.6-12.3); MONO # 0.7 10*3/uL (0.1-1.0); MONO % 7.5 % (3.0-9.0); NEUT # 7.4 10*3/uL (2.3-7.9); PLATELET COUNT AUTOMATED 188 10*3/uL (130-400); RED CELL DISTRI WIDTH 13.3 % (0-14.5); WHITE BLOOD COUNT 9.3 10*3/uL (4.8-10.8)
[2018-04-18 06:02] LABS: ALBUMIN 3.3 gm/dl (3.1-4.5); ALKALINE PHOSPHATASE 79 U/L (45-117); BUN 18 mg/dl (7-24); CHLORIDE 111 mmol/L (98-107); POTASSIUM 4.2 mmol/L (3.5-5.1); SGOT/AST 15 IU/L (3-35); SGPT/ALT 17 U/L (12-78); SODIUM 142 mmol/L (136-145); TOTAL PROTEIN 6.2 gm/dL (6.4-8.2)
[2018-04-18 08:00] VITALS: BP 154/86
--- NOTE | 2018-04-18 08:30 | NUR ---
RESTING IN BED. DENIES ANY COMPLAINTS. VITALS STABLE. PULSE OX 98% ON ROOM AIR. LUNGS CLEAR BILATERALLY. NO EDEMA NOTED.
[2018-04-18 12:00] VITALS: BP 160/93
--- NOTE | 2018-04-18 12:06 | NUR ---
Metal Annealer in to talk to patient. Patient states lives at HOME with ALONE. There are SOME steps in the home. Physician: Jovon JOHNS Pharmacy: [facility] Home health services: NONE Patient's level of ADLs: INDEPENDENT Patient has working utilities: YES DME: NONE Follow-up physician's appointment after d/c: WILL BE MADE BY HOSPITALIST NURSE DIRECTOR ON DISCHARGE Does patient want to access PORTAL?: NO Discharge plan PT STATES HE LIVES AT HOME ALONE AND HAS CHILDREN WHO LOOK IN ON HIM DAILY. DENIES ANY HOME NEEDS AFTER DISCHARGE. WILL CONTINUE TO FOLLOW.. BRII CORONA
[2018-04-18] MEDS ORDERED: CARVEDILOL25 MG PO (14:56)
[2018-04-18] MEDS ORDERED: PACERONE200 MG PO (14:56)
[2018-04-18] MEDS ORDERED: COREG12.5 M1 PO (15:05)
--- NOTE | 2018-04-18 15:48 | NUR ---
Discharge instructions reviewed with patient/family. Patient receptive and verbalizes understanding. Follow-up care arranged. Written instructions given to patient/family. MACY WILCOX
== END 2018-04-18 15:48 | disposition home or self-care (01) | DRG 308 ==
LOC: ED 20:46 → EDHOLD 22:49 → ICCU 22:49
PROVIDERS: Emergency Medicine Emergency Medical Services; Family Medicine; Student in an Organized Health Care Education/Training Program; ADMIT Internal Medicine
DX: I47.2 Ventricular tachycardia (principal); N17.0 Acute kidney failure with tubular necrosis; I16.1 Hypertensive emergency; E87.0 Hyperosmolality and hypernatremia; I50.42 Chronic combined systolic (congestive) and diastolic (congestive) heart failure; J98.11 Atelectasis; E87.6 Hypokalemia; E78.5 Hyperlipidemia, unspecified; I25.10 Atherosclerotic heart disease of native coronary artery without angina pectoris; I25.5 Ischemic cardiomyopathy; E03.9 Hypothyroidism, unspecified; I34.0 Nonrheumatic mitral (valve) insufficiency; D64.9 Anemia, unspecified; I11.0 Hypertensive heart disease with heart failure; R73.9 Hyperglycemia, unspecified; Z88.0 Allergy status to penicillin; Z85.038 Personal history of other malignant neoplasm of large intestine; I25.2 Old myocardial infarction; Z95.810 Presence of automatic (implantable) cardiac defibrillator; Z82.49 Family history of ischemic heart disease and other diseases of the circulatory system; Z80.9 Family history of malignant neoplasm, unspecified; Z79.82 Long term (current) use of aspirin; Z79.899 Other long term (current) drug therapy

== ENCOUNTER 2018-12-17 20:24 | Inpatient (IN) | payer MEDICARE ==
[~2018-12-17] VITALS: Ht 175.3 cm; Wt 93.1 kg
--- NOTE | ~2018-12-17 | EKG ---
[place], [place] ELECTROCARDIOGRAM [id number] #: [id number] ROOM: 425 DOCTOR: ELLE DRAFT REPORT BIRTHDATE: [birth year] [facility] Test Date: 2018-12-17 Test Time: 20:28:01 Pat Name: MUNA PHELPS Department: Room: [facility] Gender: M Six Sigma Black Trainer: : 1945 Requested By: ALBERT CONNOR Order Number: [id number] Reading MD: Rina Huitron MD Measurements Intervals [place] Rate: 68 P: 47 [place]: 203 QRS: -25 QRSD: 176 T: QT: 463 QTc: 493 Interpretive Statements Sinus rhythm Probable left atrial enlargement Right bundle branch block Left ventricular hypertrophy Abnrm T, consider ischemia, anterolateral lds Baseline wander in lead(s) V1,V2,V3,V4 Compared to ECG 04/18/2018 07:09:03 Myocardial infarct finding no longer present T-wave abnormality no longer present Possible ischemia still present Electronically Signed On 12-20-2018 8:01:36 PDT by Rina Huitron MD CM:EKGRPT:ELECTROCARDIOGRAM REPORT [id number] ALBERT MARTINO DRAFT REPORT ALBERT CONNOR DO
--- NOTE | ~2018-12-17 | EKG ---
[place], [place] ELECTROCARDIOGRAM [facility]PORT [id number] #: [id number] ROOM: 425 DOCTOR: ELLE DRAFT REPORT BIRTHDATE: [birth year] [facility] Test Date: 2018-12-17 Test Time: 23:33:49 Pat Name: MUNA PHELPS Department: Room: 425 Gender: M Optimization Analyst: : 1945 Requested By: ALBERT CONNOR Order Number: [id number] Reading MD: Rina Huitron MD Measurements Intervals [place] Rate: 64 P: 63 CT: 211 QRS: 8 QRSD: 175 T: 255 QT: 521 QTc: 538 Interpretive Statements Sinus rhythm Probable left atrial enlargement Right bundle branch block Left ventricular hypertrophy Prolonged QT interval Compared to ECG 04/18/2018 07:09:03 Prolonged QT interval now present Myocardial infarct finding no longer present T-wave abnormality no longer present Possible ischemia no longer present Electronically Signed On 12-20-2018 8:01:46 PDT by Rina Huitron MD CM:EKGRPT:ELECTROCARDIOGRAM REPORT [id number] ALBERT MARTINO DRAFT REPORT ALBETR CONNOR DO
--- NOTE | ~2018-12-17 | EKG ---
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: : 1945 Requested By: ALBERT CONNOR Order Number: [id number] Reading MD: Rina Huitron MD Measurements Intervals [place] Rate: 66 P: 50 ND: 216 QRS: -36 QRSD: 174 T: QT: 521 QTc: 546 Interpretive Statements Sinus rhythm Borderline prolonged ND interval Probable left atrial enlargement Right bundle branch block Left ventricular hypertrophy Compared to ECG 04/18/2018 07:09:03 Myocardial infarct finding no longer present T-wave abnormality no longer present Possible ischemia no longer present Electronically Signed On 12-20-2018 8:02:00 PDT by Rina Huitron MD CM:EKGRPT:ELECTROCARDIOGRAM REPORT [id number] ALBERT MARTINO DRAFT REPORT ALBERT CONNRO DO
--- NOTE | ~2018-12-17 | ST ---
[place], [place] EXERCISE STRESS TEST REPORT NAME: MUNA PHELPS V [facility] #: [id number] UNIT #: [id number] ROOM: 425 DOCTOR: ANÍBAL VALDEZ MD BIRTHDATE: [birth year] DOS: 12/18/2018 LEXISCAN STRESS EKG. REFERRING PHYSICIAN: Dr. Mejia INDICATION: Central chest pain. FINDINGS: The patient underwent standard protocol Lexiscan stress EKG. Baseline EKG is normal sinus rhythm with atrial pacing with a heart rate of 60, blood pressure of 126/84. The patient's peak heart rate 73 with blood pressure 122/78. The patient had no chest pain, no ischemic changes, no arrhythmias. SUMMARY OF FINDINGS: Unremarkable Lexiscan stress EKG. Please see separate report for perfusion scan imaging results. ANÍBAL VALDEZ MD CM:STRESS:EXERCISE STRESS TEST REPORT [id number] ANÍBAL VALDEZ MD
[~2018-12-17 20:24] MED LIST changes: +COREG12.5 M1 PO; +LEVOTHYROXINE125 MCG PO; +PACERONE200 MG PO
[2018-12-17 20:26] VITALS: BP 159/84
[2018-12-17] MEDS ORDERED: COLACE100 MG PO (20:40)
[2018-12-17] MEDS ORDERED: NORVASC5 MG PO (20:41)
[2018-12-17] MEDS ORDERED: ARICEPT10 M1 PO (20:41)
[2018-12-17 20:48] LABS: BASO # 0.1 10*3/uL (0.0-0.1); BASO % 0.8 % (0.0-1.0); EOS # 0.2 10*3/uL (0.0-0.4); EOS % 3.1 % (1.0-4.0); HEMATOCRIT 40.8 % (42.0-52.0); HEMOGLOBIN 13.1 g/dl (14.0-18.0); LYMPH # 1.5 10*3/uL (1.3-4.4); LYMPH % 23.2 % (27.0-41.0); MEAN CELL VOLUME 100.5 fl (80.0-94.0); MEAN CORPUSCULAR HGB 32.3 pg (27.0-31.0); MEAN CORPUSCULAR HGB CONC 32.1 g/dl (33.0-37.0); MEAN PLATELET VOLUME 10.7 fl (9.6-12.3); MONO # 0.8 10*3/uL (0.1-1.0); MONO % 12.5 % (3.0-9.0); NEUT # 3.9 10*3/uL (2.3-7.9); NEUT % 59.8 % (47.0-73.0); PLATELET COUNT AUTOMATED 193 10*3/uL (130-400); RED BLOOD COUNT 4.06 10*6/uL (4.50-5.90); WHITE BLOOD COUNT 6.5 10*3/uL (4.8-10.8)
[2018-12-17 20:59] LABS: ACT PARTIAL THROMBO TIME 24.7 SECONDS (20.0-32.1); INTERNATIONAL NORM RATIO 0.9 (2.0-3.5)
[2018-12-17 21:11] LABS: ALBUMIN 3.4 gm/dl (3.1-4.5); ALKALINE PHOSPHATASE 107 U/L (45-117); BUN 20 mg/dl (7-24); CHLORIDE 112 mmol/L (98-107); CREATININE 1.53 mg/dL (0.70-1.30); POTASSIUM 4.2 mmol/L (3.5-5.1); SGOT/AST 22 IU/L (3-35); SGPT/ALT 25 U/L (12-78); SODIUM 145 mmol/L (136-145); TOTAL PROTEIN 6.3 gm/dL (6.4-8.2)
[2018-12-17 21:16] LABS: TROPONIN I < 0.015 ng/ml (<0.045)
[2018-12-17 21:37] VITALS: BP 148/82
[2018-12-17 21:55] VITALS: BP 158/88
[2018-12-18 06:32] LABS: BASO # 0.1 10*3/uL (0.0-0.1); BASO % 0.7 % (0.0-1.0); EOS # 0.2 10*3/uL (0.0-0.4); EOS % 2.7 % (1.0-4.0); HEMATOCRIT 42.1 % (42.0-52.0); HEMOGLOBIN 13.5 g/dl (14.0-18.0); LYMPH # 1.1 10*3/uL (1.3-4.4); LYMPH % 15.3 % (27.0-41.0); MEAN CELL VOLUME 99.5 fl (80.0-94.0); MEAN CORPUSCULAR HGB 31.9 pg (27.0-31.0); MEAN CORPUSCULAR HGB CONC 32.1 g/dl (33.0-37.0); MEAN PLATELET VOLUME 10.8 fl (9.6-12.3); MONO # 0.7 10*3/uL (0.1-1.0); NEUT # 4.9 10*3/uL (2.3-7.9); NEUT % 70.3 % (47.0-73.0); PLATELET COUNT AUTOMATED 187 10*3/uL (130-400); RED BLOOD COUNT 4.23 10*6/uL (4.50-5.90)
[2018-12-18 07:03] LABS: ALBUMIN 3.4 gm/dl (3.1-4.5); ALKALINE PHOSPHATASE 93 U/L (45-117); BUN 17 mg/dl (7-24); CHLORIDE 111 mmol/L (98-107); CHOLESTEROL 125 mg/dL (<200); CREATININE 1.04 mg/dL (0.70-1.30); HDL CHOLESTEROL 62 mg/dl (40-60); LDL CHOLESTEROL 50 mg/dL (9-159); PHOSPHOROUS 2.5 mg/dL (2.5-4.9); POTASSIUM 3.8 mmol/L (3.5-5.1); SGOT/AST 23 IU/L (3-35); SGPT/ALT 24 U/L (12-78); SODIUM 143 mmol/L (136-145); TOTAL PROTEIN 6.3 gm/dL (6.4-8.2); TRIGLYCERIDES 65 mg/dl (<150); VLDL CHOLESTEROL 13 mg/dL (6-40)
[2018-12-18 08:00] VITALS: BP 159/88
[2018-12-18 12:00] VITALS: BP 156/82
[2018-12-18 16:00] VITALS: BP 137/86
== END 2018-12-18 19:09 | disposition home or self-care (01) | DRG 205 ==
LOC: ED 20:24 → 4E 21:23
PROVIDERS: Internal Medicine; Student in an Organized Health Care Education/Training Program; ADMIT Internal Medicine
PROC: 4A02XM4 Measurement of Cardiac Total Activity, External Approach (ICD-10-PCS; principal; 2018-12-18)
PROC: 3E073KZ Introduction of Other Diagnostic Substance into Coronary Artery, Percutaneous Approach (ICD-10-PCS; 2018-12-18)
DX: M94.0 Chondrocostal junction syndrome [Tietze] (principal); N17.0 Acute kidney failure with tubular necrosis; E44.0 Moderate protein-calorie malnutrition; I50.42 Chronic combined systolic (congestive) and diastolic (congestive) heart failure; I11.0 Hypertensive heart disease with heart failure; I25.5 Ischemic cardiomyopathy; D53.9 Nutritional anemia, unspecified; I25.10 Atherosclerotic heart disease of native coronary artery without angina pectoris; E87.8 Other disorders of electrolyte and fluid balance, not elsewhere classified; E03.9 Hypothyroidism, unspecified; E83.41 Hypermagnesemia; Z88.0 Allergy status to penicillin; Z95.810 Presence of automatic (implantable) cardiac defibrillator; Z85.038 Personal history of other malignant neoplasm of large intestine; I25.2 Old myocardial infarction; Z93.3 Colostomy status; Z82.49 Family history of ischemic heart disease and other diseases of the circulatory system; Z80.9 Family history of malignant neoplasm, unspecified; Z79.899 Other long term (current) drug therapy; Z79.82 Long term (current) use of aspirin; Z68.30 Body mass index [BMI] 30.0-30.9, adult

== ENCOUNTER 2019-06-29 10:20 | Emergency (ER) | payer MEDICARE ==
[~2019-06-29] VITALS: Ht 182.8 cm; Wt 90.7 kg
[~2019-06-29 10:20] MED LIST changes: +ARICEPT10 M1 PO; +NORVASC5 MG PO
[2019-06-29] MEDS ORDERED: Motrin,Rufen400 MG PO (12:58)
== END 2019-06-29 13:02 | disposition home or self-care (01) ==
LOC: ED 10:20
DX: S00.03XA Contusion of scalp, initial encounter (principal); S00.83XA Contusion of other part of head, initial encounter; S00.31XA Abrasion of nose, initial encounter; I25.2 Old myocardial infarction; I25.10 Atherosclerotic heart disease of native coronary artery without angina pectoris; I11.0 Hypertensive heart disease with heart failure; I50.40 Unspecified combined systolic (congestive) and diastolic (congestive) heart failure; E03.9 Hypothyroidism, unspecified; Z88.0 Allergy status to penicillin; Z79.899 Other long term (current) drug therapy; Z79.82 Long term (current) use of aspirin; Z95.810 Presence of automatic (implantable) cardiac defibrillator; W18.09XA Striking against other object with subsequent fall, initial encounter; Y93.01 Activity, walking, marching and hiking; Y92.480 Sidewalk as the place of occurrence of the external cause; Y99.8 Other external cause status

== ENCOUNTER → 2019-12-19 | Outpatient (CLI) | payer MEDICARE ==
[~2019-12-19] MED LIST changes: +Motrin,Rufen400 MG PO
== END | disposition home or self-care (01) ==
LOC: CARD 01:54 → US 12:30
PROVIDERS: ATTEND Physician Assistant
DX: I65.22 Occlusion and stenosis of left carotid artery (principal); I25.118 Atherosclerotic heart disease of native coronary artery with other forms of angina pectoris; R42 Dizziness and giddiness; R73.03 Prediabetes

== ENCOUNTER → 2021-07-19 | Outpatient (CLI) | payer MEDICARE | END | disposition home or self-care (01) | LOC: CARD 00:06 | PROVIDERS: ATTEND Physician Assistant | DX: R94.31 Abnormal electrocardiogram [ECG] [EKG] (principal); J44.9 Chronic obstructive pulmonary disease, unspecified; I25.10 Atherosclerotic heart disease of native coronary artery without angina pectoris ==

== ENCOUNTER → 2021-07-21 | Outpatient (CLI) | payer MEDICARE | END | disposition home or self-care (01) | LOC: CARD 07:20 | PROVIDERS: ATTEND Physician Assistant | DX: I34.0 Nonrheumatic mitral (valve) insufficiency (principal); I25.10 Atherosclerotic heart disease of native coronary artery without angina pectoris; J44.9 Chronic obstructive pulmonary disease, unspecified ==

== ENCOUNTER 2024-02-16 03:48 | Emergency (ER) | payer MEDICARE ==
[~2024-02-16] VITALS: Ht 182.8 cm; Wt 89.9 kg
[~2024-02-16 03:48] MED LIST changes: +CARVEDILOL12.5 MG PO; +CETIRIZINE10 MG PO; +LEVOXYL88 MCG PO
[2024-02-16 04:32] LABS: BASO % 0.7 % (0.0-1.0); EOS # 0.2 10*3/uL (0.0-0.4); EOS % 2.6 % (1.0-4.0); HEMATOCRIT 40.6 % (42.0-52.0); LYMPH # 1.6 10*3/uL (1.3-4.4); MEAN CELL VOLUME 101.5 fl (80.0-94.0); MEAN CORPUSCULAR HGB CONC 31.5 g/dl (33.0-37.0); MEAN PLATELET VOLUME 10.5 fl (9.6-12.3); MONO # 0.7 10*3/uL (0.1-1.0); MONO % 12.4 % (3.0-9.0); NEUT # 3.3 10*3/uL (2.3-7.9); NEUT % 56.4 % (47.0-73.0); PLATELET COUNT AUTOMATED 240 10*3/uL (130-400); RED CELL DISTRI WIDTH 13.6 % (0-14.5); WHITE BLOOD COUNT 5.8 10*3/uL (4.8-10.8)
[2024-02-16 04:52] LABS: BUN 15 mg/dl (9-23); CHLORIDE 107 mmol/L (98-107); POTASSIUM 3.8 mmol/L (3.4-5.1)
[2024-02-16 04:57] LABS: ETHYL ALCOHOL < 3.0 mg/dl (<3)
[2024-02-16] MEDS ORDERED: SODIUM CHLORIDE 0.9% 500 ML IV ONE (05:55)
[2024-02-16 06:11] LABS: BILIRUBIN Negative (Negative); BLOOD Negative (Negative); CLARITY Clear (Clear); COLOR Yellow (Yellow); GLUCOSE Negative (Negative); KETONE Negative (Negative); LEUKO ESTERASE Negative (Negative); NITRITE Negative (Negative); SPECIFIC GRAVITY <= 1.005 (1.001-1.030); UROBILINOGEN 0.2 E.U./dl (0.0-1.0)
== END 2024-02-16 07:07 | disposition home or self-care (01) ==
LOC: ED 03:48
PROVIDERS: Internal Medicine
DX: I12.9 Hypertensive chronic kidney disease with stage 1 through stage 4 chronic kidney disease, or unspecified chronic kidney disease (principal); N18.31 Chronic kidney disease, stage 3a; I25.2 Old myocardial infarction; D63.1 Anemia in chronic kidney disease; Z88.0 Allergy status to penicillin; Z98.890 Other specified postprocedural states; Z79.899 Other long term (current) drug therapy

== ENCOUNTER 2025-04-03 13:05 | Emergency (ER) | payer MEDICARE ==
[~2025-04-03] VITALS: Ht 177.8 cm; Wt 95.3 kg
[2025-04-03] MEDS ORDERED: SODIUM CHLORIDE 0.9% 500 ML IV ONE (13:40)
[2025-04-03] MEDS ORDERED: Phenergan6.25 MG/5 PO (13:47)
[2025-04-03 14:02] LABS: BASO # 0.0 10*3/uL (0.0-0.1); BASO % 0.3 % (0.0-1.0); EOS # 0.1 10*3/uL (0.0-0.4); EOS % 1.0 % (1.0-4.0); MEAN CELL VOLUME 102.6 fl (80.0-94.0); MEAN CORPUSCULAR HGB 33.0 pg (27.0-31.0); MEAN PLATELET VOLUME 10.6 fl (9.6-12.3); MONO # 0.9 10*3/uL (0.1-1.0); MONO % 11.1 % (3.0-9.0); NEUT # 5.9 10*3/uL (2.3-7.9); NEUT % 75.3 % (47.0-73.0); NUCLEATED RED BLOOD CELL 0.0 % (0.0-0.0); NUCLEATED RED BLOOD CELL 0.0 10*3/uL (0.0-0.0); PLATELET COUNT AUTOMATED 200 10*3/uL (130-400); RED CELL DISTRI WIDTH 14.5 % (0-14.5)
[2025-04-03 14:26] LABS: BUN 19 mg/dl (9-23)
[2025-04-03] MEDS ORDERED: Meclizine25 MG PO (15:02)
[2025-04-03] MEDS ORDERED: Ondansetron4 MG PO (15:02)
== END 2025-04-03 15:28 | disposition home or self-care (01) ==
LOC: ED 13:05
PROVIDERS: Emergency Medicine
DX: S63.501A Unspecified sprain of right wrist, initial encounter (principal); S60.211A Contusion of right wrist, initial encounter; S00.33XA Contusion of nose, initial encounter; S00.93XA Contusion of unspecified part of head, initial encounter; R42 Dizziness and giddiness; I25.2 Old myocardial infarction; I10 Essential (primary) hypertension; Z88.0 Allergy status to penicillin; Z98.890 Other specified postprocedural states; W19.XXXA Unspecified fall, initial encounter; Y93.89 Activity, other specified; Y92.89 Other specified places as the place of occurrence of the external cause; Y99.8 Other external cause status